=== PATIENT | female | born 1960 | race Caucasian/White ===

== ENCOUNTER 2017-10-31 04:33 | Emergency (ER) | payer OTHER ==
[~2017-10-31] VITALS: Ht 165.1 cm; Wt 74.8 kg
[~2017-10-31 04:33] MED LIST: AVELOX400 MG PO; CIPRO500 MG PO; DOXYCYCLINE 10100 MG PO; GEMFIBROZIL 60600 M1 PO; GLYBURID-METFO1 EAC2 PO; HYDROCODONE-AP1 EAC6 PO; IBUPROFEN 800800 M1 PO; IRON; IRON18 MG PO; KLOR-CON; LASIX 20 MG TAB20 MG PO; LIPITOR; LISINOPRIL2.5 MG PO; LORTAB 5 MG/5001 TA1 PO; METFORMIN HCL500 MG PO; MICRO-K 10 MEQ10 MEQ OR; NAPROSYN500 MG PO; NEURONTIN 300300 M1 PO; NORCO 5-325 TA1 EACH PO; NORFLEX100 MG PO; PAXIL; PAXIL20 MG PO; PHENERGAN 25 MG25 M1 PO; PHENERGAN25 MG RE; POTASSIUM; PREDNISONE 20 M20 MG PO; PROBIOTIC1 EAC1 PO; SIMVASTATIN40 MG PO; SYNTHROID; TRAMADOL 50 MG50 MG PO; TRAZODONE 150150 M1 PO; TRILIPIX45 MG PO; TUSSIONEX PENN473 ML PO; ULTRAM 50MG TAB50 MG PO; VENTOLIN HFA 1818 GM INH; ZOFRAN ODT4 MG PO; ZPAK PO; [UNRECOGNIZED DRUG - REMARK]
[2017-10-31] MEDS ORDERED: VALIUM5 MG PO (05:38)
[2017-10-31] MEDS ORDERED: NORCO 5-325 TA1 EACH PO (05:38)
[2017-10-31] MEDS ORDERED: MOBIC15 MG PO (05:38)
== END 2017-10-31 05:51 | disposition home or self-care (01) ==
LOC: ER 04:33
DX: M54.5 Low back pain (principal); F17.210 Nicotine dependence, cigarettes, uncomplicated; E11.9 Type 2 diabetes mellitus without complications; F41.9 Anxiety disorder, unspecified; E78.5 Hyperlipidemia, unspecified; Z86.2 Personal history of diseases of the blood and blood-forming organs and certain disorders involving the immune mechanism; Z90.49 Acquired absence of other specified parts of digestive tract

== ENCOUNTER 2017-11-02 23:44 | Emergency (ER) | payer OTHER ==
[~2017-11-02] VITALS: Ht 165.1 cm; Wt 74.8 kg
[~2017-11-02 23:44] MED LIST changes: +MOBIC15 MG PO; +VALIUM5 MG PO
[2017-11-03 01:26] LABS: URINE BILIRUBIN NEGATIVE (Negative); URINE BLOOD NEGATIVE (Negative); URINE CLARITY CLEAR; URINE COLOR YELLOW; URINE GLUCOSE-RANDOM* NEGATIVE (Negative); URINE KETONES NEGATIVE (Negative); URINE NITRITE-REFLEX NEGATIVE (Negative); URINE PROTEIN (DIPSTICK) NEGATIVE (Negative); URINE SPECIFIC GRAVITY 1.015 (1.005-1.035)
[2017-11-03] MEDS ORDERED: PREDNISONE 20 M20 MG PO (01:31)
[2017-11-03] MEDS ORDERED: FLEXERIL PO (01:31)
[2017-11-03 01:34] LABS: URINE LEUKOCYTES-REFLEX TRACE (Negative)
== END 2017-11-03 01:46 | disposition home or self-care (01) ==
LOC: ER 23:44
PROVIDERS: Emergency Medicine
DX: M54.9 Dorsalgia, unspecified (principal); M25.572 Pain in left ankle and joints of left foot; E11.9 Type 2 diabetes mellitus without complications; F41.9 Anxiety disorder, unspecified; E78.5 Hyperlipidemia, unspecified; F17.210 Nicotine dependence, cigarettes, uncomplicated; Z86.2 Personal history of diseases of the blood and blood-forming organs and certain disorders involving the immune mechanism; Z90.49 Acquired absence of other specified parts of digestive tract

== ENCOUNTER 2020-03-06 00:03 | Emergency (ER) | payer OTHER ==
[~2020-03-06] VITALS: Ht 167.6 cm; Wt 72.6 kg
[~2020-03-06 00:03] MED LIST changes: +FLEXERIL PO
[2020-03-06 02:09] VITALS: BP 109/59
== END 2020-03-06 02:40 | disposition home or self-care (01) ==
LOC: ER 00:03
DX: M54.31 Sciatica, right side (principal); E78.5 Hyperlipidemia, unspecified; E11.9 Type 2 diabetes mellitus without complications; F17.210 Nicotine dependence, cigarettes, uncomplicated; Z79.899 Other long term (current) drug therapy; Z90.49 Acquired absence of other specified parts of digestive tract; Z98.51 Tubal ligation status

== ENCOUNTER 2021-05-16 00:11 | Emergency (ER) | payer OTHER ==
[~2021-05-16] VITALS: Ht 165.1 cm; Wt 81.7 kg
[2021-05-16] MEDS ORDERED: NOHOMEMEDICATIONS (00:50)
[2021-05-16 01:01] LABS: ABSOLUTE NEUTROPHILS 1.6 thou/uL (1.4-8.2); BASOPHILS 0.5 % (0.0-2.0); EOSINOPHILS 0.6 % (0.0-3.0); HEMATOCRIT 46.2 % (37.0-47.0); HEMOGLOBIN 15.6 gm/dL (12.0-15.0); LYMPHOCYTES 46.4 % (24.0-44.0); MCH 29.5 pg (26.0-34.0); MCHC 33.8 g/dL (28.0-37.0); MCV 87.3 fL (80.0-100.0); MONOCYTES 10.1 % (1.0-8.0); PLATELET COUNT 156 thou/uL (150-400); POLYS 42.4 % (36.0-66.0); RDW 14.1 % (10.5-14.5); WBC 3.8 thou/uL (4.0-11.0)
[2021-05-16 01:08] LABS: CALCIUM 8.5 mg/dL (8.5-10.1); POTASSIUM 4.1 mmol/L (3.5-5.1)
[2021-05-16 01:17] LABS: ALBUMIN 3.4 g/dL (3.4-5.0); TOTAL BILIRUBIN 0.4 mg/dL (0.2-1.0); TOTAL PROTEIN 7.3 g/dL (6.4-8.2)
[2021-05-16 02:39] VITALS: BP 97/49
== END 2021-05-16 02:39 | disposition home or self-care (01) ==
LOC: ER 00:11
PROVIDERS: Emergency Medicine
DX: U07.1 COVID-19 (principal); R07.89 Other chest pain; R06.02 Shortness of breath; E11.65 Type 2 diabetes mellitus with hyperglycemia; F41.9 Anxiety disorder, unspecified; E78.5 Hyperlipidemia, unspecified; F17.210 Nicotine dependence, cigarettes, uncomplicated; Z90.49 Acquired absence of other specified parts of digestive tract; Z98.890 Other specified postprocedural states; Z79.899 Other long term (current) drug therapy